=== PATIENT | female | born 1975 | race Caucasian/White ===

== ENCOUNTER 2023-08-21 15:42 | Emergency (ER) | payer OTHER, SELFPAY ==
[2023-08-21 15:48] VITALS: BP 168/98
[2023-08-21 16:21] VITALS: BMI 25.0
[2023-08-21 16:22] VITALS: BP 149/94
[2023-08-21] MEDS: NSS 1000 IV (16:52)
[2023-08-21 17:00] VITALS: BP 144/90
[2023-08-21 17:04] LABS: % Basophils 1.2 % (0-2); % Immature Granulocytes 0.4 % (0-0.5); % Lymphocytes 17.5 % (20.5-51.1); % Monocytes 8.6 % (1.7-9.3); % Neutrophils 71.3 % (42.2-75.2); Absolute Basophils 0.1 10^3/uL (0-0.2); Absolute Eosinophils 0.1 10^3/uL (0-0.7); Absolute Lymphocytes 1.5 10^3/uL (1.2-3.4); Absolute Monocytes 0.7 10^3/uL (0.1-0.6); Hematocrit 40.2 % (37.0-47.0); Hemoglobin 13.7 g/dL (12.0-16.0); Mean Corp Hgb Conc. 34.1 g/dL (33.0-37.0); Mean Corpuscular Hgb 30.9 pg (27.0-31.0); Mean Corpuscular Volume 90.7 fL (81.0-99.0); Mean Platelet Volume 9.7 fL (7.4-10.4); Nucleated Red Blood Cells % 0 %; Platelet Count 237 10^3/uL (130-400); Red Blood Cell Count 4.43 10^6/uL (4.20-5.40); Red Cell Dist. Width 12.6 % (11.5-14.5); White Blood Cell Count 8.4 10^3/uL (4.8-10.8)
[2023-08-21 17:18] LABS: ALT (SGPT) 21 U/L (0-35); AST (SGOT) 27 U/L (14-36); Albumin 4.4 g/dl (3.5-5.0); Alkaline Phosphatase 60 U/L (38-126); Blood Urea Nitrogen 14 mg/dl (7-17); Calcium 9.8 mg/dl (8.4-10.2); Carbon Dioxide 24 mmol/L (22-30); Chloride 103 mmol/L (98-107); Estimated Creatinine Clearance 107 ml/min; Glucose 103 mg/dl (70-99); Potassium 3.9 mmol/L (3.5-5.1); Sodium 135 mmol/L (135-145); Total Bilirubin 1.4 mg/dl (0.2-1.3); Total Protein 7.1 g/dl (6.3-8.2); eGFR > 60.00
[2023-08-21 17:21] LABS: D-Dimer 0.42 ug/mlFEU (0.00-0.50)
--- NOTE | 2023-08-21 17:22 | ED.GENMED ---
History of Present Illness
General
Chief Complaint: Heart Rate Problem
Source: patient
Exam Limitations: none
Time Seen by Provider: 08/21/23 16:03
Nursing documentation reviewed up to this point in time: agreed with
Travel History
Have you had any contact with someone who has COVID-19?: No
Do you have any symptoms of coronavirus? Fever > 100 degrees, chills, cough, shortness of breath, sore throat, loss of taste or smell, muscle aches, or headache?: No
History of Present Illness
History of Present Illness:
47-year-old female with a past medical history of anxiety who presents to the emergency room for evaluation of palpitations. Patient reports onset of symptoms Monday and have been intermittent since that time although constant since this morning.
She reports a sensation of her heart racing. She denies any associated dizziness or lightheadedness. Denies any associated chest pain or shortness of breath. She denies recent illness�no cough, fevers, chills. She denies any other associated
symptoms. She denies any recent increase in her caffeine intake. [place] was on the beach a lot and is not sure if she was drinking enough water. She also admits that she had more
alcohol than she typically would this weekend although she did not drink very heavily. She denies any known cardiac history.
Review of Systems
Review of Systems
All Other Systems: ROS reviewed and negative except as documented in HPI and ROS
Constitutional: Denies fever or chills
EENT: Denies sore throat or runny nose
Respiratory: Denies cough or trouble breathing
Cardiac: Reports palpitations; Denies chest pain, diaphoresis or syncope
ABD/GI: Denies abdominal pain, nausea, vomiting or diarrhea
: Denies flank pain
Musculoskeletal: Denies neck pain or back pain
Neurological: Denies dizzy or headache
Phy Exam
Physical Exam
Physical Exam:
General: Awake, alert, oriented x3; slightly anxious but in no acute distress
Head: Normocephalic, atraumatic
Eyes: Conjunctiva normal
Throat: Airway intact, handling secretions
Neck: Trachea midline, supple without meningismus
Lungs: Clear to auscultation bilaterally, no wheezing, rales, rhonchi
Heart: Regular rate and rhythm, no murmurs, gallops, or rubs�triage tachycardia resolved by my assessment
Abd: Soft, non distended, nontender
Neuro: Cranial nerves grossly intact, speech fluid
Skin: no rash
Extremities: No edema in extremities, equal pulses in all extremities
Scores
Heart Failure Risk
Heart Failure Risk Score: Not Applicable
Heart Score for Chest Pain Patients
STEMI patient?: Not applicable
Withdrawal Assessment of Alcohol
Withdrawal Assessment Completed?: Not applicable
Course
Orders/Labs/Results
Orders:
Orders
08/21/23 15:44
Electrocardiogram (*1) Urgent
Reason for Study: Bradycardia / Tachycardia
EKG- Treatment ONCE
08/21/23 16:14
0.9% Sodium Chloride 1000 ml [Nss] 1,000 ml IV BOLUS
08/21/23 16:52
Complete Blood Count/With Diff Urgent
Comprehensive Metabolic Panel Urgent
D-Dimer Urgent
TSH Reflex To Free T4 Urgent
Troponin I Urgent
08/21/23 17:27
Electrocardiogram (*1) Urgent
Reason for Study: Bradycardia / Tachycardia
EKG- Treatment ONCE
Abnormal Lab Results
08/21/23
16:52
Absolute Monos (auto) 0.7 H 10^3/uL
(0.1-0.6)
Lymphocytes % 17.5 L %
(20.5-51.1)
Glucose 103 H mg/dl
(70-99)
Total Bilirubin 1.4 H mg/dl
(0.2-1.3)
08/21/23 16:52
08/21/23 16:52
Vital Signs
Pulse: 93
Initial and Last Documented VS:
Initial Vital Signs
Temp Pulse Resp BP Pulse Ox
36.8 C 128 16 168/98 98
08/21/23 15:48 08/21/23 15:48 08/21/23 15:48 08/21/23 15:48 08/21/23 15:48
Last Documented Vital Signs
Temp Pulse Resp BP Pulse Ox
36.8 C 103 13 143/80 96
08/21/23 15:48 08/21/23 18:00 08/21/23 18:00 08/21/23 18:00 08/21/23 18:00
MDM/Problems Addressed
Differential Diagnosis Includes:
Dysrhythmia including atrial fibrillation or atrial flutter, anxiety, dehydration, electrolyte derangement, alcohol related tachycardia, pericarditis/myocarditis
MDM/Problems Addressed:
47-year-old female presents for evaluation of palpitations for the past 2 days; hypertensive and tachycardic in triage although vital signs normalized by my assessment. She was having symptoms during triage EKG and on review of the EKG it shows
sinus tachycardia but no ectopy, no arrhythmia. She has no delta wave, no Brug[place], normal QTc. Nothing to suggest acute pericarditis and no acute ischemic changes. Will plan to place an IV check labs including a CBC and a CMP. Will check
troponin, thyroid studies, dimer. Will monitor on telemetry. Provide some IV fluids. Reassess after the above. Suspect likely combination of increased alcohol this weekend, dehydration and some element of anxiety as well.
Labs reviewed: CBC reassuring, CMP no clinically significant abnormalities. Troponin undetectable. Thyroid studies normal. D-dimer negative. Clinical reassessment heart rate in the 90s patient more calm, says she is not having significant
palpitations at present. Suspect likely palpitations/tachycardia multifactorial likely related to some dehydration, some anxiety, perhaps some element of alcohol use this weekend as well. I think she is stable for discharge at this point in time.
Advised to rest and drink plenty of fluids over the next few days. Advised that if she should have recurrent symptoms she should follow-up with cardiology as an outpatient. She feels comfortable with this plan. We spoke about return precautions
and all questions were answered.
Chronic conditions affecting care:
Anxiety
Acute Exacerbation and/or Progression of Chronic Illness:
Acutely hypertensive resolved without intervention continue to monitor but no additional antihypertensives indicated at present
Acute Exacerbation and/or Progression of Chronic Illness: HTN
*Pulse Oximetry
Patient hypoxic: no
*EKG
Interpreted by ED Provider?: Yes
Heart Rate: 124
Rate: tachycardiac
Rhythm: sinus and sinus tachycardia
[place]: normal axis
Interval: normal interval
QRS Pattern: normal QRS
Ischemia: no ischemia
*Critical Care Note
Total Time (30-74mins, 75-104mins- exclusive of procedures): Not Applicable
Data Reviewed
Source: patient
ED Attending Note
-
Portions of this chart may have been created with voice recognition software.� Occasional wrong word or��sound alike� substitutions may have occurred due to the inherent limitations of voice recognition software.
Discharge Plan
Departure
Patient Disposition: Home (Routine Discharge)
Date of Disposition: 08/21/23
Time of Disposition: 18:13
Patient with high blood pressure during this ER visit?: Yes
Discharge Problem:
Palpitations
Instructions: Palpitations (DC)
Referrals:
Macrina Galindo CRNP [Family Provider] -
Winston Nuno MD [Active] - Call in 1-3 days for appt (Cardiology)
Activity Restrictions/Additional Instructions:
Thank you for visiting the Emergency Department at [facility].
1. Please schedule a follow up appointment as directed. Call first thing tomorrow morning to make an appointment.
2. If indicated, please take your medications as instructed and indicated on discharge paperwork.
3. If any of your symptoms do not improve, or persist, or become more severe within 6-12 hours, please return to the emergency department for further care.
4. Please return to the emergency department if you develop a headache, neck pain/stiffness, fever greater than 100.4F, chest pain, shortness of breath, persistent nausea, vomiting, slurred speech, difficulty walking, numbness/tingling, weakness,
signs of infection or any other symptoms that are worrisome to you.
Please call [phone] if you have any questions.
Interventions
Interventions:
*Risk Screen - Suicide Last Done: 08/21/23 16:21
*General Assessment Last Done: 08/21/23 16:21
*Neglect/Abuse Screening Last Done: 08/21/23 16:21
ED- Fall Risk Assessment Last Done: 08/21/23 16:21
*ED COVID-19 Vaccine History Last Done: 08/21/23 16:21
ED- Cardiac Assessment Last Done: 08/21/23 16:21
ED- Pulmonary Assessment Last Done: 08/21/23 16:21
Discharge Date and Time
Print Language: EQUATORIAL GUINEAN
[2023-08-21 17:29] LABS: Troponin I < 0.012 ng/ml
[2023-08-21 18:00] VITALS: BP 143/80
== END 2023-08-21 18:53 | disposition home or self-care (01) ==
LOC: EMR 15:42
PROVIDERS: EMERGENCY PHYSICIAN Emergency Medicine; FAMILY PHYSICIAN Nurse Practitioner Family
DX: R00.2 Palpitations (principal); F41.9 Anxiety disorder, unspecified; R03.0 Elevated blood-pressure reading, without diagnosis of hypertension
CPT/HCPCS: 99284; 96360; 80053; 84443; 84484; 85025; 85379; 93005